=== PATIENT | male | born 1970 | race Caucasian/White ===

== ENCOUNTER 2022-06-26 11:10 | Emergency (ER) | payer OTHER ==
[2022-06-26 11:24] VITALS: BP 138/78; PULSE 62; RESP 15; TEMP 99.4; BMI 32.6
== END 2022-06-26 12:05 | disposition home or self-care (01) ==
LOC: FER 11:10
DX: S46.912A Strain of unspecified muscle, fascia and tendon at shoulder and upper arm level, left arm, initial encounter (principal); X50.0XXA Overexertion from strenuous movement or load, initial encounter
CPT/HCPCS: 73030-TC-LT-FY; 99283-25